=== PATIENT | male | born 1945 | race Asian ===

== ENCOUNTER 2016-07-25 11:05 | Day surgery (SDC) | payer MEDICARE ==
[~2016-07-25] VITALS: Ht 162.6 cm; Wt 65.0 kg
[~2016-07-25 11:05] MED LIST: BENZ-12 PO; ESOM40CA41 PO; GUAI120L57 PO; MULT-1018 PO; OMEP20CA11 PO; RANI150C4 PO; Sodium Chloride LOK Flush 10 mL Syringe IV PRN; fentaNYL-PF 50 mCg/mL 2 mL Inj IVPUSH PRN
[2016-07-25 11:28] VITALS: BP 129/79; PULSE 65; O2SAT 98
[2016-07-25] MEDS: 0.9% Sodium Chloride 1,000 ML IV SCH ×2 (11:46→11:57)
[2016-07-25 12:05] VITALS: BP 105/62; PULSE 58; RESP 16; O2SAT 97
[2016-07-25 12:15] VITALS: BP 103/64; PULSE 64; RESP 16; O2SAT 99
[2016-07-25 12:25] VITALS: BP 102/66; PULSE 63; RESP 16; O2SAT 99
--- NOTE | 2016-07-25 12:37 | ENDO ---
[address] [address] ENDOSCOPY PROCEDURE PATIENT: HAYDEN GAMINO : 1945 MR#: [id number] ADMIT: 07/25/2016 JOB ID: [id number] OPERATION: 1. Esophagogastroduodenoscopy with biopsy. 2. Colonoscopy. PREOPERATIVE DIAGNOSES: 1. Gastroesophageal reflux disease. 2. Colorectal cancer. POSTOPERATIVE DIAGNOSES: 1. Normal upper endoscopy, status post biopsy. 2. Small internal hemorrhoids. ANESTHESIA: 1. Fentanyl 75 mcg. 2. Versed 3 mg IV administered. DESCRIPTION OF PROCEDURE: After the risks and benefits were explained to the patient, informed consent was obtained. After anesthesia was administered, the upper endoscope was inserted into mouth, intubating the esophagus, stomach, second portion of the duodenum, and the mucosa carefully examined. After the procedure was done, the scope was withdrawn and the procedure terminated. A colonoscope was inserted from the rectum to the cecum and the mucosa carefully examined. Prep of the patient was excellent. After the procedure was done, the scope was withdrawn and the procedure terminated. FINDINGS: Upon inspection of the esophagus, the esophagus is normal, without masses, ulcers, or lesions. Z-line located at 40 cm from the incisors. Upon entering the stomach, the stomach was normal, without masses, ulcers, or lesions. Retroflexion was normal. The duodenal bulb, first, and second portions were normal. Biopsies were taken of the distal esophagus. Upon inspection of the anus, no masses, hemorrhoids, ulcers, or fissures that were seen. Throughout the entire examination no polyps, masses, or lesions. Retroflexion showed small internal hemorrhoids. IMPRESSION: 1. Small internal hemorrhoids. 2. Normal upper endoscopy, status post biopsy. RECOMMENDATION: 1. Await pathology results. 2. Repeat colonoscopy in 10 years for colorectal cancer screening.
--- NOTE | 2016-07-29 13:54 | PATH ---
SURGICAL PATHOLOGY Attending Physician:Cory Carr MD CASE STATUS: Signed Out PATIENT NAME: HAYDEN GAMINO PID: [id number] : 1945 DATE COLLECTED:07/25/2016 20:05 SPECIMEN: Esophagus, Biopsy CLINICAL HISTORY: 1). DISTAL ESOPHAGUS BIOPSY FINAL DIAGNOSIS: 1.DISTAL ESOPHAGUS BIOPSY: FRAGMENTS OF SQUAMOUS MUCOSA AND SMALL AMOUNT OF GASTRIC CARDIA-TYPE MUCOSA POSITIVE FOR SPECIALIZED METAPLASIA OF SELBY' S-TYPE ESOPHAGUS BY ALCIAN BLUE STAIN. Negative for dysplasia and malignancy. Eosinophils are not increased. ICD10 code K22.70 GROSS DESCRIPTION: The specimen is received in one formalin filled container labeled with the patient's name, sublabeled "distal esophagus" and consists of 2 portions of tissue which aggregate to 0.3 x 0.3 x 0.2 CM. The specimen is entirely submitted in one cassette. 07/25/2016 DAC MICRO DESCRIPTION: See diagnosis. ICD-9 CODES: CPT CODES: 1: 97461, 14697 Electronically Signed Out Yosi Ramos MD [facility] [address], [place] [address] Technical component performed at [facility], [address] [place] [address] [address], [address]
== END 2016-07-25 23:59 | disposition home or self-care (01) ==
LOC: END 11:05
PROVIDERS: ATTEND Internal Medicine Gastroenterology
DX: Z12.11 Encounter for screening for malignant neoplasm of colon (principal); K64.8 Other hemorrhoids; K21.9 Gastro-esophageal reflux disease without esophagitis; Z79.899 Other long term (current) drug therapy
CPT/HCPCS: 43239; G0121; J2250; J7030